=== PATIENT | female | born 1980 | race Caucasian/White ===

== ENCOUNTER 2019-01-28 12:15 | Emergency (ER) | payer OTHER, SELFPAY ==
[~2019-01-28 12:15] MED LIST: Iopamidol 370 76% 125 ML VIAL FS ONE
[2019-01-28] MEDS ORDERED: Lactated Ringer's 1,000 ML ONE (12:28)
[2019-01-28] MEDS ORDERED: Ketorolac Tromethamine 30 MG/ML VIAL ONE (12:28)
[2019-01-28 12:30] LABS: #Basophils 0.1 thou/uL (0.0-0.2); #Eosinphils 0.5 thou/uL (0.0-0.7); #Lymphocytes 1.8 thou/uL (1.20-3.40); #Neutrophils 9.6 thou/uL (1.40-6.50); %Basophils 0.9 % (0.0-1.0); %Eosinophils 3.6 % (0.0-10.0); %Lymphocytes 14.1 % (21.0-51.0); %Monocytes 7.5 % (0.0-10.0); %Neutrophils 73.9 % (42.0-75.0); Hemoglobin 14.1 g/dL (12.0-16.0); Platelet Count 262 thou/uL (130-400); RBC Distribution Width 11.3 % (11.5-14.5); Red Blood Cell (RBC) Count 4.87 mill/uL (4.20-5.40)
[2019-01-28 12:41] LABS: Bilirubin Negative (Negative); Blood, Urine Trace (Negative); Clarity Cloudy (Clear); Glucose, Urine (Dipstick) Negative (Negative); Leukocyte Large (Negative); Nitrite Positive (Negative); Protein, Urine (Dipstick) 100 mg/dL (Neg-Trace)
[2019-01-28 12:42] LABS: Bacteria/HPF 1+ HPF (None Seen); RBC/HPF 0-3 HPF (0-3); WBC/HPF Greater Than 50 HPF (0-3)
[2019-01-28 12:43] LABS: Specific Gravity 1.015 (1.002-1.036)
[2019-01-28 12:47] LABS: Pregnancy Test - Urine (BHCG) Negative (Negative); Pregu Control Background? CLEAR/WHITE (CLR/WHITE); Pregu Control Bar Appear? YES (CONTROL BAR)
[2019-01-28 12:48] LABS: ALT (SGPT) 12 U/L (8-55); AST (SGOT) 15 U/L (5-34); Albumin 4.2 g/dL (3.5-5.0); Alkaline Phosphatase 94 U/L (40-150); Anion Gap 13 mmol/L (10-20); BUN (Urea Nitrogen) 10 mg/dL (7.0-18.7); Bilirubin, Total 0.9 mg/dL (0.2-1.2); CK (CPK) 60 U/L (29-168); Calc. Creatinine Clearance 0 mL/min (70-130); Calcium 9.3 mg/dL (7.8-10.44); Carbon Dioxide 27 mmol/L (22-29); Chloride 104 mmol/L (98-107); Estimated GFR-MDRD 70; Globulin 3.2 g/dL (2.4-3.5); Glucose 84 mg/dL (70-105); Lipase 22 U/L (8-78); Potassium 3.2 mmol/L (3.5-5.1); Protein, Total 7.4 g/dL (6.0-8.3); Sodium 141 mmol/L (136-145)
--- NOTE | 2019-01-28 13:15 | CT ---
CTA of the chest and abdomen utilizing an aortic dissection protocol and 3-D reformatted imaging INDICATION: History of chest pain and abdominal pain predominantly right sided COMPARISON: None FINDINGS: Aorta: No aortic stenosis, occlusion or aneurysmal formation is demonstrated. Central pulmonary artery: No central pulmonary embolus demonstrated. Additional thorax findings: No focal consolidation, pleural effusion or pneumothorax is evident. Ther e is subsegmental volume loss within the right middle lobe. Additional abdominal findings: There is mild fatty infiltration of the liver. There is mild cortical atrophy involving the superior pole right kidney which may reflect sequela of prior infection. No free fluid or enlarged lymph nodes are evident. There is a duplicated right renal collecting system. Osseous structures: Mild thoracolumbar scoliosis with multilevel spondylosis. IMPRESSION: 1. No appreciable aortic stenosis, occlusion or aneurysmal formation demonstrated. 2. Fatty liver 3. Mild cortical atrophy of the superior pole the right kidney may reflect sequela of prior infection and a duplicated right renal collecting system.
[2019-01-28] MEDS ORDERED: cefTRIAXone\\ROCEPHIN 1 GM VIAL ONE (13:39)
== END 2019-01-28 14:06 | disposition home or self-care (01) ==
LOC: MADERS 12:15
DX: N12 Tubulo-interstitial nephritis, not specified as acute or chronic (principal); F32.9 Major depressive disorder, single episode, unspecified; R94.31 Abnormal electrocardiogram [ECG] [EKG]; F17.210 Nicotine dependence, cigarettes, uncomplicated
CPT/HCPCS: 71275; 80053; 81003; 81015; 81025; 82550; 83690; 84484; 85025; 87077; 87086; 87186; 93005; 94760; 96361; 96372; 96374; J0696; J1885; J7120; Q9967

== ENCOUNTER 2019-05-17 18:39 | Emergency (ER) | payer SELFPAY | END 2019-05-17 19:05 | disposition home or self-care (01) | LOC: MADERS 18:39 | DX: M25.521 Pain in right elbow (principal); F32.9 Major depressive disorder, single episode, unspecified; F17.210 Nicotine dependence, cigarettes, uncomplicated | CPT/HCPCS: 99283 ==

== ENCOUNTER 2019-07-07 08:47 | Emergency (ER) | payer SELFPAY ==
--- NOTE | 2019-07-07 09:23 | RAD ---
Portable frontal chest radiograph: 07/07/2019 COMPARISON: None HISTORY: Cough FINDINGS: Lungs are clear. Heart and mediastinal contours appear within normal limits. IMPRESSION: No acute findings.
[2019-07-07 09:25] LABS: #Basophils 0.1 thou/uL (0.0-0.2); #Eosinphils 0.6 thou/uL (0.0-0.7); #Monocytes 0.6 thou/uL (0.11-0.59); #Neutrophils 3.2 thou/uL (1.40-6.50); %Basophils 1.6 % (0.0-1.0); %Eosinophils 8.6 % (0.0-10.0); %Lymphocytes 30.8 % (21.0-51.0); %Monocytes 9.4 % (0.0-10.0); %Neutrophils 49.6 % (42.0-75.0); Hemoglobin 14.3 g/dL (12.0-16.0); Mean Corpuscular HGB CONC 30.9 g/dL (32.0-36.0); Mean Corpuscular Hemoglobin 28.9 pg (27.0-31.0); Mean Corpuscular Volume 93.7 fL (78.0-98.0); Mean Platelet Volume 8.5 fL (7.4-10.4); Platelet Count 286 thou/uL (130-400); RBC Distribution Width 11.3 % (11.5-14.5); Red Blood Cell (RBC) Count 4.95 mill/uL (4.20-5.40); White Blood Cell (WBC) Count 6.5 thou/uL (4.8-10.8)
[2019-07-07 09:32] LABS: Platelet Morphology Comment Appears Adequate; RBC Morphology Normal
[2019-07-07 09:35] LABS: ALT (SGPT) 21 U/L (8-55); AST (SGOT) 15 U/L (5-34); Albumin 4.4 g/dL (3.5-5.0); Alkaline Phosphatase 100 U/L (40-110); Anion Gap 12 mmol/L (10-20); BUN (Urea Nitrogen) 11 mg/dL (7.0-18.7); Bilirubin, Total 0.2 mg/dL (0.2-1.2); Calc. Creatinine Clearance 0 mL/min (70-130); Calcium 9.4 mg/dL (7.8-10.44); Carbon Dioxide 26 mmol/L (22-29); Chloride 105 mmol/L (98-107); Estimated GFR-MDRD 78; Globulin 3.3 g/dL (2.4-3.5); Glucose 70 mg/dL (70-105); Potassium 3.2 mmol/L (3.5-5.1); Protein, Total 7.7 g/dL (6.0-8.3); Sodium 140 mmol/L (136-145)
[2019-07-07] MEDS ORDERED: cefTRIAXone\\ROCEPHIN 2 GM VIAL ONE (10:44)
[2019-07-07] MEDS ORDERED: Sodium Chloride 0.9% 100 ML ONE (10:44)
[2019-07-07] MEDS ORDERED: methylPREDNISolone Sod Succ/PF 125 MG/2 ML VIAL ONE (10:44)
[2019-07-07] MEDS ORDERED: diphenhydrAMINE 50 MG/ML VIAL ONE (10:53)
[2019-07-07] MEDS ORDERED: Famotidine In NaCl 20 mg/50 ml Premix Bag ONE (11:01)
--- NOTE | 2019-07-07 11:15 | RAD ---
EXAM: 4 views of the right elbow HISTORY: Elbow pain COMPARISON: None FINDINGS: No elbow effusion is seen. There is no evidence of acute fracture or dislocation. No signi ficant degenerative changes are seen. No soft tissue swelling is present. IMPRESSION: No evidence of acute osseous abnormality.
== END 2019-07-07 12:42 | disposition home or self-care (01) ==
LOC: MADERS 08:47
DX: J44.1 Chronic obstructive pulmonary disease with (acute) exacerbation (principal); L27.0 Generalized skin eruption due to drugs and medicaments taken internally; T78.40XA Allergy, unspecified, initial encounter; M77.9 Enthesopathy, unspecified; F32.9 Major depressive disorder, single episode, unspecified; F17.210 Nicotine dependence, cigarettes, uncomplicated
CPT/HCPCS: 36416; 71045; 80053; 83880; 84484; 85025; 87804; 93005; 96365; 96375; J0696; J1200; J2930; J3490; J7620

== ENCOUNTER 2022-05-28 10:00 | Emergency (ER) | payer SELFPAY ==
[2022-05-28 10:43] LABS: #Eosinphils 0.2 thou/uL (0.0-0.7); #Lymphocytes 0.6 thou/uL (1.20-3.40); #Monocytes 0.6 thou/uL (0.11-0.59); #Neutrophils 6.3 thou/uL (1.40-6.50); %Basophils 0.3 % (0.0-1.0); %Lymphocytes 7.8 % (21.0-51.0); %Monocytes 8.3 % (0.0-10.0); %Neutrophils 81.6 % (42.0-75.0); Hemoglobin 14.3 g/dL (12.0-16.0); Mean Corpuscular HGB CONC 33.5 g/dL (32.0-36.0); Mean Corpuscular Hemoglobin 30.3 pg (27.0-31.0); Mean Corpuscular Volume 90.3 fl (78.0-98.0); Mean Platelet Volume 8.7 fL (7.4-10.4); Platelet Count 237 10x3/uL (130-400); RBC Distribution Width 11.2 % (11.5-14.5); Red Blood Cell (RBC) Count 4.73 mill/uL (4.20-5.40); White Blood Cell (WBC) Count 7.7 10x3/uL (4.8-10.8)
[2022-05-28 11:01] LABS: ALT (SGPT) 9 U/L (8-55); AST (SGOT) 10 U/L (5-34); Albumin 3.5 g/dL (3.5-5.0); Alkaline Phosphatase 86 U/L (40-110); Anion Gap 12 mmol/L (10-20); BUN (Urea Nitrogen) 12 mg/dL (7.0-18.7); Bilirubin, Total 0.5 mg/dL (0.2-1.2); Calc. Creatinine Clearance 0 mL/min (70-130); Calcium 8.4 mg/dL (7.8-10.44); Carbon Dioxide 26 mmol/L (22-29); Chloride 103 mmol/L (98-107); Estimated GFR 99; Globulin 3.3 g/dL (2.4-3.5); Glucose 79 mg/dL (70-105); Potassium 3.9 mmol/L (3.5-5.1); Protein, Total 6.8 g/dL (6.0-8.3); Sodium 137 mmol/L (136-145)
== END 2022-05-28 11:18 | disposition home or self-care (01) ==
LOC: MADERS 10:00
DX: R07.89 Other chest pain (principal); F17.210 Nicotine dependence, cigarettes, uncomplicated
CPT/HCPCS: 36415; 71045; 80053; 83880; 84484; 85025; 93005